=== PATIENT | male | born 1990 | race Caucasian/White ===

== ENCOUNTER 2016-12-13 17:49 | Emergency (ER) | payer BC ==
[~2016-12-13] VITALS: Ht 180.3 cm; Wt 91.6 kg
[2016-12-13 17:57] VITALS: Ht 180.3 cm; Wt 91.6 kg
[2016-12-13] MEDS ORDERED: HYDROmorphone INJ 1 MG/ML SYR IV STA (18:38)
[2016-12-13] MEDS ORDERED: ONDANSETRON INJ 2 MG/ML 2 ML VIAL IV STA (18:38)
[2016-12-13] MEDS ORDERED: SODIUM CHLORIDE 0.9% 1000ML 1,000 ML IV ONE (18:45)
--- NOTE | 2016-12-13 19:15 | DIAGNOSTIC IMAGING REPORT ---
LUMBAR SPINE CT CT DOSE: 683.95 mGy.cm HISTORY: Back pain severe lumbar back pain x1 wk TECHNIQUE: Multiaxial CT images of the lumbar spine were performed and reformatted in the sagittal and coronal plane without the use of contrast. COMPARISON: None. FINDINGS: No fractures. No subluxation. Paraspinal soft tissues are unremarkable. IMPRESSION: No fractures within the lumbar spine. Electronically signed by: Arjun John M.D. 12/13/2016 7:13 PM Dictated Date/Time: 12/13/2016 7:12 PM
[2016-12-13 19:20] LABS: BASO % 0.3 %; BASO ABS # 0.02 K/uL (0-0.2); COMPLETE YES; HEMATOCRIT 45.4 % (42-52); IG% 0.2 %; LYMPH % 16.9 %; LYMPH ABS # 1.02 K/uL (1.2-3.4); MEAN CELL VOLUME 88.8 fL (80-100); MEAN CORPUSCULAR HEMOGLOBIN 30.9 pg (25-34); MEAN CORPUSCULAR HGB CONC 34.8 g/dl (32-36); MEAN PLATELET VOLUME 10.5 fL (7.4-10.4); MONO % 8.4 %; NEUT % 68.2 %; PLATELET COUNT 162 K/uL (130-400); RED BLOOD COUNT 5.11 M/uL (4.7-6.1); WHITE BLOOD COUNT 6.04 K/uL (4.8-10.8)
[2016-12-13 19:27] LABS: CALCIUM 8.7 mg/dl (8.5-10.1); CREATININE 1.3 mg/dl (0.60-1.40); POTASSIUM 3.6 mmol/L (3.5-5.1)
[2016-12-13] MEDS ORDERED: HYDROmorphone INJ 0.5 MG/0.5 ML SYR IV STA (19:40)
[2016-12-13 19:56] LABS: URINE APPEARANCE CLEAR (CLEAR); URINE BILIRUBIN NEG (NEG); URINE COLOR YELLOW; URINE NITRITE NEG (NEG); URINE PH 6.5 (4.5-7.5); URINE SPECIFIC GRAVITY 1.016 (1.000-1.030); UROBILINOGEN NEG (NEG)
[2016-12-13 19:58] LABS: MANUAL MICROSCOPIC REQUIRED? NO; REVIEW REQ? NO
[2016-12-13] MEDS ORDERED: OXYCODONE IR HOME PACK PO ONE (20:00)
[2016-12-13] MEDS ORDERED: OXYC1TAB3 PO (20:00)
[2016-12-13 20:13] VITALS: BP 149/92; PULSE 98; TEMP 36.9; O2SAT 97
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
== END 2016-12-13 20:14 | disposition home or self-care (01) ==
LOC: C.EDB 17:51 → C.EDD 20:14
DX: M54.5 Low back pain (principal); M62.830 Muscle spasm of back; F17.200 Nicotine dependence, unspecified, uncomplicated